=== PATIENT | male | born 1955 | race Caucasian/White ===

== ENCOUNTER 2016-12-26 21:20 | Emergency (ER) | payer OTHER ==
[~2016-12-26] VITALS: Ht 185.4 cm; Wt 90.0 kg
[2016-12-26 21:23] VITALS: BP 170/89; PULSE 90; RESP 15; TEMP 98.4; O2SAT 97
[2016-12-27] MEDS ORDERED: METF850T PO (00:25)
[2016-12-27] MEDS ORDERED: GLIP10TA6 PO (00:25)
[2016-12-27 00:28] VITALS: BP 155/96; PULSE 72; RESP 18; O2SAT 96
--- NOTE | 2016-12-27 00:52 | PD ---
HPI Chief Complaint: Fall Time Seen by Provider: 00:29 Travel History International Travel<30 days: No Contact w/Intl Traveler<30days: No Traveled to known affect area: No History of Present Illness HPI Patient is a 61-year-old male presented to emergency department for evaluation of back and neck pain after a mechanical fall at work. Patient states the floor was wet and he slipped. He denies any head injury or loss of consciousness. He states his pain is 8 out of 10, he states his back feels tight and sore. He states his left arm is tingling. Denies any weakness. Patient's past medical history significant for hypertension and type 2 diabetes. He has not taken any medications to alleviate the pain. PFSH Past Medical History Diabetes: Yes Patient Takes Glucophage: No Diminished Hearing: No Hypertension: Yes Immunizations Current: Yes Tetanus Vaccination: < 5 Years Influenza Vaccination: No Social History Alcohol Use: No Tobacco Use: No Substance Use: No Allergies-Medications (Allergen,Severity, Reaction): Coded Allergies: Penicillins (Verified Allergy, Mild, Rash, 12/27/16) benzalkonium chloride (Verified Allergy, Mild, Rash, 12/27/16) Reported Meds & Prescriptions Reported Meds & Active Scripts Active Flexeril (Cyclobenzaprine HCl) 10 Mg Tab 10 Mg PO TID PRN Ibuprofen 800 Mg Tab 800 Mg PO Q8H PRN Reported Metformin (Metformin HCl) 850 Mg Tab 850 Mg PO DAILY With a meal Glipizide 10 Mg Tab 20 Mg PO DAILY Take 30 minutes before a meal Review of Systems Except as stated in HPI: all other systems reviewed are Neg Musculoskeletal: Positive: Myalgias, Cramping, Pain Neurologic: Positive: Sensory Disturbance Physical Exam Narrative GENERAL: Well-developed, well-nourished, alert male. Resting comfortably in no acute distress. SKIN: Warm and dry. HEAD: Atraumatic. Normocephalic. EYES: Pupils equal and round. No scleral icterus. No injection or drainage. ENT: No nasal bleeding or discharge. Mucous membranes pink and moist. NECK: Trachea midline. No JVD. CARDIOVASCULAR: Regular rate and rhythm. RESPIRATORY: No accessory muscle use. Clear to auscultation. Breath sounds equal bilaterally. GASTROINTESTINAL: Abdomen soft, non-tender, nondistended. Hepatic and splenic margins not palpable. MUSCULOSKELETAL: Extremities without clubbing, cyanosis, or edema. No obvious deformities. Tenderness to palpation over upper lumbar spine. No step-off noted. Tenderness to palpation paraspinal musculature and cervical region. NEUROLOGICAL: Awake and alert. No obvious cranial nerve deficits. Motor grossly within normal limits. Five out of 5 muscle strength in the arms and legs. Normal speech. PSYCHIATRIC: Appropriate mood and affect; insight and judgment normal. Data Data Last Documented VS Vital Signs Date Time Temp Pulse Resp B/P (MAP) Pulse Ox O2 Delivery O2 Flow Rate FiO2 12/27/16 00:28 72 18 155/96 (115) 96 Room Air 12/26/16 21:[address] Cerv Spine W/O Contrast (12/27/16 ) Ct Lumb Spine W/O Contrast (12/27/16 ) Ibuprofen (Motrin) (12/27/16 01:00) Cyclobenzaprine (Flexeril) (12/27/16 01:00) MDM Medical Decision Making Medical Screen Exam Complete: Yes Emergency Medical Condition: Yes Interpretation(s) Vital Signs Date Time Temp Pulse Resp B/P (MAP) Pulse Ox O2 Delivery O2 Flow Rate FiO2 12/27/16 00:28 72 18 155/96 (115) 96 Room Air 12/26/16 21:23 98.4 90 15 170/89 (116) 97 Room Air Differential Diagnosis Sprain versus strain versus fracture versus discogenic pain versus other Narrative Course Patient is a 61-year-old male that presented to him or department for evaluation after slip and fall at work. He complains of neck and back pain, he reported some paresthesia down his right arm. However there are no focal deficits noted on exam. CT of the cervical spine and lumbar spine ordered. Patient medicated for pain. Will reassess. CT of the cervical and lumbar spine are negative for acute abnormalities. Her porch mild improvement in his pain. He was encouraged to take medications as directed, apply warm heat to the affected area, continue range of motion exercises. He was advised to return to emergency department for any new or worsening symptoms. Patient is to follow-up with her primary doctor. Patient is stable for discharge. Diagnosis Primary Impression: Fall Qualified Codes: W19.XXXA - Unspecified fall, initial encounter Additional Impressions: Muscle strain Muscle spasm Referrals: Primary Care Physician 1 week Patient Instructions: General Instructions, Muscle Spasm (ED), Muscle Strain ( ED) Additional Instructions: Apply warm moist heat to the affected area, continue range of motion exercises, avoid bed rest, avoid exacerbating activities Follow-up with a primary doctor Return to emergency department for any new or worsening symptoms Take medications as directed Med/Other Pt SpecificInfo: Prescription(s) given Scripts Cyclobenzaprine (Flexeril) 10 Mg Tab 10 MG PO TID Y for MUSCLE SPASM, #30 TAB 0 Refills Prov: Annie Delaney 12/27/16 Ibuprofen (Ibuprofen) 800 Mg Tab 800 MG PO Q8H Y for Pain/Inflammation, #60 TAB 0 Refills Prov: Annie Delaney 12/27/16 Disposition: 01 DISCHARGE HOME Condition: Stable Annie Delaney Dec 27, 2016 00:52
[2016-12-27] MEDS ORDERED: IBUPROFEN 800 MG TAB PO ONE (01:00)
[2016-12-27] MEDS ORDERED: CYCLOBENZAPRINE HCL 10 MG TAB PO ONE (01:00)
[2016-12-27] MEDS ORDERED: IBUP800T23 PO (01:59)
[2016-12-27] MEDS ORDERED: CYCL1TAB29 PO (01:59)
--- NOTE | 2016-12-27 02:13 | RADRPT ---
EXAM DATE/TIME: 12/27/2016 01:31 [facility] COMPARISON: No previous studies available for comparison. INDICATIONS : Neck pain post fall. RADIATION DOSE: 34.53 CTDIvol (mGy) MEDICAL HISTORY : Hypertension. SURGICAL HISTORY : None. ENCOUNTER: Initial ACUITY: 1 day PAIN SCALE: 6/10 LOCATION: neck TECHNIQUE: Volumetric scanning of the cervical spine was performed. Multiplanar reconstructions in the sagittal, coronal and oblique axial planes were performed. Using automated exposure control and adjustment o f the mA and/or kV according to patient size, radiation dose was kept as low as reasonably achievable to obtain optimal diagnostic quality images. DICOM format image data is available electronically f or review and comparison. FINDINGS: Cervical spine alignment is satisfactory. There is no evidence of cervical spine fracture. There are degenerative changes with disc space narrowing most significantly at C6-7. Broad dorsal disc osteophy te is present which appears produce moderate asymmetrically right-sided foraminal stenosis. Slight de gree of canal stenosis. Less severe changes at other levels. Significant posterior facet arthropathy present most significantly on the right at C5-6. There is no evidence of paraspinal mass or hematoma. CONCLUSION: No acute bony injury in the cervical spine Boby Coreas MD on December 27, 2016 at 2:06 Board Certified Radiologist. This report was verified electronically.
--- NOTE | 2016-12-27 02:20 | RADRPT ---
EXAM DATE/TIME: 12/27/2016 01:33 [facility] COMPARISON: No previous studies available for comparison. INDICATIONS : Lower back pain post fall. RADIATION DOSE: 35.86 CTDIvol (mGy) MEDICAL HISTORY : None SURGICAL HISTORY : Fusion, lumbar. ENCOUNTER: Initial ACUITY: 1 day PAIN SCALE: 8/10 LOCATION: Lower back TECHNIQUE: Volumetric scanning of the lumbar spine was performed. Multiplanar reconstructions in the sagittal, coronal and oblique axial planes were performed. Using automated exposure control and adjustment of the mA and/or kV according to patient size, radiation dose was kept as low as reasonably achievable t o obtain optimal diagnostic quality images. DICOM format image data is available electronically for review and comparison. FINDINGS: Lumbar spine alignment is satisfactory. There is no evidence of acute fracture. Schmorl node end plat e defects are present superiorly at the L2 and L4 levels which appear nonacute. There are degenerativ e changes present throughout the lumbar spine. Disc space narrowing at all visualized levels, most si gnificantly at L5-S1. There is vacuum disc phenomena at L1-2. There has been previous bilateral facet joint fusion at L5-S1. There is no evidence of paraspinal mass or hematoma. There does appear to be annular disc bulge with mild broad superimposed dorsal or true shunt at L3-4 mildly exacerbated by dorsal ligamentous hypertr ophy. Similar findings with a moderate degree of concentric canal stenosis suspected at L4-5. Moderat e bilateral foraminal stenosis present L5-S1. Severe posterior facet arthropathy present at L4-[address] Degenerative changes in the sacroiliac joints bilaterally with bridging osteophytes on the r ight. CONCLUSION: No acute bony injury in the lumbosacral spine. Boby Coreas MD on December 27, 2016 at 2:11 Board Certified Radiologist. This report was verified electronically.
== END 2016-12-27 02:34 | disposition home or self-care (01) ==
LOC: NEPD 21:20
DX: M62.838 Other muscle spasm (principal); T14.8XXA Other injury of unspecified body region, initial encounter; E11.9 Type 2 diabetes mellitus without complications; W01.0XXA Fall on same level from slipping, tripping and stumbling without subsequent striking against object, initial encounter; Y99.0 Civilian activity done for income or pay; Z79.84 Long term (current) use of oral hypoglycemic drugs
CPT/HCPCS: 72125; 72131; 99285

== ENCOUNTER 2017-01-25 12:11 | Emergency (ER) | payer SELFPAY ==
[~2017-01-25 12:11] MED LIST: CYCL10TA PO; GLIP10TA6 PO; IBUP1TAB7 PO; METF850T PO
[2017-01-25 12:13] VITALS: BP 177/93; PULSE 64; RESP 18; TEMP 98.1; O2SAT 99
[2017-01-25] MEDS ORDERED: LISI-515 PO (12:44)
[2017-01-25] MEDS ORDERED: ORPHENADRINE INJ 60 MG/2 ML AMP IM ONE (13:00)
[2017-01-25] MEDS ORDERED: KETOROLAC TROMETHAMINE 60 MG/2 ML (IM) VIAL IM ONE (13:00)
[2017-01-25] MEDS ORDERED: DEXAMETHASONE SOD PHOS 20 MG/5 ML VIAL IM ONE (13:00)
--- NOTE | 2017-01-25 13:30 | PD ---
HPI Chief Complaint: Pain: Acute or Chronic Time Seen by Provider: 12:31 Travel History International Travel<30 days: No Contact w/Intl Traveler<30days: No Traveled to known affect area: No History of Present Illness HPI Patient is a 61-year-old Polish-speaking male presenting to him or jump for evaluation of right shoulder pain. Patient declined formal interpretation, nurse at bedside Polish-speaking and will interpret for patient. Patient states for the last 2 days he's had right shoulder pain that radiates from the mid scapula down to his elbow. He states that shooting pain. He states the pain is a 9 out of 10, this exacerbated by movement. He has not taken any medication to alleviate the pain. He denies any numbness, weakness. He denies any new injury. PFSH Past Medical History Cardiovascular Problems: Yes (HTN) Diabetes: Yes Patient Takes Glucophage: Yes Diminished Hearing: No Hypertension: Yes Medical other: Yes Immunizations Current: Yes Influenza Vaccination: No Social History Alcohol Use: No Tobacco Use: No (quit 10- years ago) Substance Use: No Allergies-Medications (Allergen,Severity, Reaction): Coded Allergies: Penicillins (Verified Allergy, Mild, Rash, 12/27/16) benzalkonium chloride (Verified Allergy, Mild, Rash, 12/27/16) Reported Meds & Prescriptions Reported Meds & Active Scripts Active Flexeril (Cyclobenzaprine HCl) 10 Mg Tab 10 Mg PO TID PRN Ibuprofen 800 Mg Tab 800 Mg PO Q8H PRN Reported Lisinopril 20 Mg Tab 20 Mg PO DAILY Metformin (Metformin HCl) 850 Mg Tab 850 Mg PO DAILY With a meal Glipizide 10 Mg Tab 20 Mg PO DAILY Take 30 minutes before a meal Review of Systems Except as stated in HPI: all other systems reviewed are Neg Musculoskeletal: Positive: Myalgias, Pain Physical Exam Narrative GENERAL: Well-developed, well-nourished, alert male. Resting comfortably in no acute distress SKIN: Warm and dry. HEAD: Atraumatic. Normocephalic. EYES: Pupils equal and round. No scleral icterus. No injection or drainage. ENT: No nasal bleeding or discharge. Mucous membranes pink and moist. NECK: Trachea midline. No JVD. CARDIOVASCULAR: Regular rate and rhythm. RESPIRATORY: No accessory muscle use. Clear to auscultation. Breath sounds equal bilaterally. GASTROINTESTINAL: Abdomen soft, non-tender, nondistended. Hepatic and splenic margins not palpable. MUSCULOSKELETAL: Extremities without clubbing, cyanosis, or edema. No obvious deformities. Tenderness to palpation in thoracic region just superior to the right scapula radiating to the tricep and elbow. Full range of motion in all 4 extremities. Patient is neurovascularly intact. NEUROLOGICAL: Awake and alert. No obvious cranial nerve deficits. Motor grossly within normal limits. Five out of 5 muscle strength in the arms and legs. Normal speech. PSYCHIATRIC: Appropriate mood and affect; insight and judgment normal. Data Data Last Documented VS Vital Signs Date Time Temp Pulse Resp B/P (MAP) Pulse Ox O2 Delivery O2 Flow Rate FiO2 01/25/17 12:44 76 17 01/25/17 12:13 98.1 177/93 (121) 99 Room Air Orders Orders Shoulder, Complete (>2vws) (01/25/17 ) Ketorolac Inj (Toradol Inj) (01/25/17 13:00) Orphenadrine Inj (Norflex Inj) (01/25/17 13:00) Dexamethasone Inj (Decadron Inj) (01/25/17 13:00) [facility] Medical Decision Making Medical Screen Exam Complete: Yes Emergency Medical Condition: Yes Medical Record Reviewed: Yes Interpretation(s) Last Impressions Shoulder X-Ray 01/25/17 0000 Signed Impressions: Service Date/Time: Wednesday, January 25, 2017 13:19 - CONCLUSION: 1. Degenerative spurring of the a.c. joint. 2. Otherwise negative. No fracture. Davie Ford MD Vital Signs Date Time Temp Pulse Resp B/P (MAP) Pulse Ox O2 Delivery O2 Flow Rate FiO2 01/25/17 12:44 76 17 01/25/17 12:13 98.1 64 18 177/93 (121) 99 Room Air Differential Diagnosis Tendinitis versus strain versus spasm versus discogenic pain versus other Narrative Course Patient is a 61-year-old male presenting to emergency from for evaluation of right shoulder pain. Patient was seen and evaluated in emergency Department approximately one month ago after slip and fall at work. At that time he had CT scans performed of the cervical and lumbar spines which showed no acute abnormality. Patient is not complaining of shoulder pain at that time, imaging of the shoulder ordered, medications ordered to help alleviate pain symptoms. Plan of care was discussed with patient with the use of the nurse to interpret. X-ray of the left shoulder shows degenerative spurring of the before meals joint otherwise negative, there is no fracture noted. Patient will be discharged home with anti-inflammatory medication. He has Flexeril at home from his previous presentation to the emergency department. He does not use it because he stated it was too sedating, he was advised to break the 10 mg Flexeril tablet and half and take 3 times a day as needed. He was encouraged to continue range of motion exercises, apply warm heat to the affected area, avoid exacerbating activities. He was strongly encouraged to follow up with a primary doctor or at the [facility]. Diagnosis Primary Impression: Shoulder pain Qualified Codes: M25.511 - Pain in right shoulder Referrals: [facility] 1 week Patient Instructions: General Instructions, Shoulder Pain (ED) Additional Instructions: Follow-up with the [facility] or with a primary doctor Take medications as directed Break Flexeril tablet in half and take his previously prescribed as needed for muscle pain Return to emergency department for any new or worsening symptoms Apply warm heat to the affected area, continue range of motion exercises, avoid exacerbating activities. Med/Other Pt SpecificInfo: Prescription(s) given Scripts Meloxicam (Meloxicam) 15 Mg Tab 15 MG PO DAILY Y for PAIN SCALE 1 TO 10, #30 TAB 0 Refills Prov: Annie Delaney 01/25/17 Disposition: 01 DISCHARGE HOME Condition: Stable Annie Delaney Jan 25, 2017 13:30
--- NOTE | 2017-01-25 13:41 | RADRPT ---
EXAM DATE/TIME: 01/25/2017 13:19 [facility] COMPARISON: No previous studies available for comparison. INDICATIONS : Fell eleven days ago, pain posterior right shoulder MEDICAL HISTORY : None. SURGICAL HISTORY : None. ENCOUNTER: Initial ACUITY: 1 week PAIN SCORE: Non-responsive. LOCATION: Right shoulder FINDINGS: Multiple view examination of the right shoulder demonstrates no evidence of fracture or dislocation. The glenohumeral joint is maintained. There is some spurring of the a.c. joint. There is normal ran ge of motion between internal and external rotation. Bony mineralization is normal. CONCLUSION: 1. Degenerative spurring of the a.c. joint. 2. Otherwise negative. No fracture. Davie Ford MD on January 25, 2017 at 13:38 Board Certified Radiologist. This report was verified electronically.
[2017-01-25] MEDS ORDERED: MELO15TA20 PO (14:02)
[2017-01-25 14:05] VITALS: RESP 17
[2017-01-25 14:20] VITALS: BP 130/77; TEMP 97.8
== END 2017-01-25 14:20 | disposition home or self-care (01) ==
LOC: NEPE 12:11
DX: M25.511 Pain in right shoulder (principal); M75.91 Shoulder lesion, unspecified, right shoulder; I10 Essential (primary) hypertension; E11.9 Type 2 diabetes mellitus without complications; Z88.0 Allergy status to penicillin; Z88.8 Allergy status to other drugs, medicaments and biological substances; Z79.899 Other long term (current) drug therapy
CPT/HCPCS: 73030; 96372; 99284; J1100; J1885; J2360